=== PATIENT | female | born 1930 | race Caucasian/White ===

== ENCOUNTER 2016-07-13 12:29 | Emergency (ER) | payer OTHER ==
[~2016-07-13] VITALS: Ht 162.6 cm; Wt 90.4 kg
[~2016-07-13 12:29] MED LIST: COZAAR100 MG PO; VITAMIN B COMP1 EACH PO; VITAMIN B12-FO1 EACH PO; VITAMIN D
[2016-07-13 13:27] LABS: HEMATOCRIT 37.7 % (36.0-46.0); MCH 30.2 PG (29.0-34.0); MCHC 31.8 G/DL (30.0-36.0); MEAN PLAT.VOLUME 10.5 uM^3 (9.5-12.4); PLATELET COUNT 110 K/uL (156-360); RBC DIS.WIDTH-CV 13.9 % (11.8-14.6); RBC DIS.WIDTH-SD 48.8 % (39-53); RED BLOOD COUNT 3.97 M/uL (3.80-5.20); WHITE BLOOD COUNT 5.9 K/uL (4.1-10.2)
[2016-07-13 13:38] LABS: CHLORIDE 106 mEq/L (99-109); POTASSIUM 3.9 mEq/L (3.7-5.4); SODIUM 138 mEq/L (136-147)
[2016-07-13 13:40] LABS: GLUCOSE 118 mg/dL (70-99)
[2016-07-13 13:41] LABS: ANION GAP 11 MEQ/L (2-14)
[2016-07-13 13:44] LABS: GFR ESTIMATE (CALCULATED) 35 mL/min/
[2016-07-13 13:45] LABS: UREA NITROGEN (BUN) 23 mg/dL (9-23)
[2016-07-13 13:49] LABS: TROP-I INTERPRETATION NEGATIVE; TROPONIN-I 0.02 ng/mL (0.0-0.30)
[2016-07-13] MEDS ORDERED: PREDNISONE50 MG PO (15:21)
[2016-07-13] MEDS ORDERED: ELIQUIS2.5 MG PO (15:21)
[2016-07-13] MEDS ORDERED: ZITHROMAX250 MG PO (15:21)
[2016-07-13 15:50] VITALS: BP 140/77
== END 2016-07-13 15:51 | disposition home or self-care (01) ==
LOC: EME 12:29
DX: I48.91 Unspecified atrial fibrillation (principal); J11.1 Influenza due to unidentified influenza virus with other respiratory manifestations; J44.1 Chronic obstructive pulmonary disease with (acute) exacerbation; Z96.652 Presence of left artificial knee joint; Z96.643 Presence of artificial hip joint, bilateral
CPT/HCPCS: 71020; 80048; 84484; 85027; 93005; 94640; 99281; 99285; J7512

== ENCOUNTER 2016-08-06 04:25 | Observation (INO) | payer OTHER ==
[~2016-08-06] VITALS: Ht 162.6 cm; Wt 88.4 kg
[~2016-08-06 04:25] MED LIST changes: +ELIQUIS2.5 MG PO; +PREDNISONE50 MG PO; +ZITHROMAX250 MG PO
[2016-08-06 05:22] LABS: CHLORIDE 108 mEq/L (99-109); POTASSIUM 4.5 mEq/L (3.7-5.4); SODIUM 138 mEq/L (136-147)
[2016-08-06 05:24] LABS: GLUCOSE 116 mg/dL (70-99)
[2016-08-06 05:25] LABS: ANION GAP 9 MEQ/L (2-14)
[2016-08-06 05:29] LABS: TROP-I INTERPRETATION NEGATIVE; TROPONIN-I < 0.01 ng/mL (0.0-0.30); UREA NITROGEN (BUN) 29 mg/dL (9-23)
[2016-08-06] MEDS ORDERED: LOSARTAN POTASS50 MG PO (05:35)
[2016-08-06] MEDS ORDERED: BISOPROLOL FUMAR5 MG PO (05:35)
[2016-08-06 05:38] LABS: HEMATOCRIT 35.8 % (36.0-46.0); MCH 31.3 PG (29.0-34.0); MCHC 32.1 G/DL (30.0-36.0); MCV 97.5 FL (83-99); MEAN PLAT.VOLUME 10.6 uM^3 (9.5-12.4); PLATELET COUNT 141 K/uL (156-360); RBC DIS.WIDTH-CV 14.2 % (11.8-14.6); RBC DIS.WIDTH-SD 51.3 % (39-53); RED BLOOD COUNT 3.67 M/uL (3.80-5.20); WHITE BLOOD COUNT 7.3 K/uL (4.1-10.2)
[2016-08-06 06:38] LABS: GFR ESTIMATE (CALCULATED) 35 mL/min/
[2016-08-06] MEDS ORDERED: VITAMIN B-650 MG PO (07:37)
[2016-08-06] MEDS ORDERED: SPIRIVA1 INHALATI IH (07:38)
[2016-08-06 11:38] LABS: TROP-I INTERPRETATION NEGATIVE; TROPONIN-I < 0.01 ng/mL (0.0-0.30)
[2016-08-06 12:08] LABS: HDL CHOLESTEROL 72 MG/DL (Desirable>=50); LDL CHOLESTEROL 82 mg/dL (Desirable<100); NON-HDL CHOLESTEROL 91 mg/dL (Desirable<160); TOTAL CHOLESTEROL 163 mg/dL (Desirable<200); TRIGLYCERIDES 47 MG/DL (Normal: <150)
[2016-08-06 12:49] VITALS: BP 127/72
[2016-08-06 15:09] VITALS: BP 120/71
[2016-08-06 17:42] LABS: TROP-I INTERPRETATION NEGATIVE; TROPONIN-I 0.01 ng/mL (0.0-0.30)
[2016-08-07 12:09] VITALS: BP 127/67
[2016-08-07] MEDS ORDERED: PREDNISONE20 MG PO (12:15)
[2016-08-07] MEDS ORDERED: FUROSEMIDE20 MG PO (12:25)
[2016-08-07] MEDS ORDERED: BISOPROLOL FUMAR5 MG PO ×2 (14:22→15:50)
== END 2016-08-07 16:20 | disposition home health service (06) ==
LOC: EME 04:25 → EDOF 07:52 → 5WEST 07:52 → EDOF 07:52 → 5WEST 12:38
PROVIDERS: Internal Medicine
DX: R07.89 Other chest pain (principal); I48.2 Chronic atrial fibrillation; I31.3 Pericardial effusion (noninflammatory); J44.9 Chronic obstructive pulmonary disease, unspecified; R06.02 Shortness of breath; I12.9 Hypertensive chronic kidney disease with stage 1 through stage 4 chronic kidney disease, or unspecified chronic kidney disease; N18.3 Chronic kidney disease, stage 3 (moderate); Z66 Do not resuscitate
CPT/HCPCS: 71020; 80048; 80061; 83880; 84484; 85027; 87502; 93005; 93306; 94640; 94640 76; 99202; 99281; 99285; G0378; J2920; J7512